=== PATIENT | male | born 1980 | race Caucasian/White ===

== ENCOUNTER 2020-02-20 20:05 | Observation (INO) | payer OTHER ==
[2020-02-20] MEDS ORDERED: RINGERS SOLUTION,LACTATED 1,000 ML IV ONE (20:34)
[2020-02-20] MEDS ORDERED: PROMETHAZINE HCL INJ 25 MG/1 ML VIAL IV ONE (20:34)
--- NOTE | 2020-02-20 20:36 | ER Document Report ---
ED Medical Screen (RME) - General Chief Complaint: Abdominal Pain Stated Complaint: ABDOMINAL PAIN/VOMITING Time Seen by Provider: 02/20/20 20:28 Mode of Arrival: Wheelchair Information source: Patient, Relative Notes: HPI; 39-year-old male brought to the emergency room with his complaining of worsening abdominal pain with nausea and vomiting for the past 2 days. Patient has a history of celiac artery compression syndrome. Most recently admitted at [facility] from February 11 1 February 14 states symptoms started again [place] kevin he has been taking his home oxycodone, Phenergan and Zofran without relief. States the only thing that works for him when his pain gets this bad is IV Dilaudid and IV Phenergan and IV fluids. States unable to tolerate anything p.o. PE: Alert and oriented x3. Lungs: Clear to auscultation without rales, rhonchi, wheezes. Heart: Tachycardic without murmurs, rubs, gallops. Actively vomiting. I have greeted and performed a rapid initial assessment of this patient. A comprehensive ED assessment and evaluation of the patient, analysis of test results and completion of the medical decision making process will be conducted by additional ED providers. I have specifically instructed the patient or family members with the patient to immediately return to any nursing staff should anything change in the patient's condition or with their chief complaint. TRAVEL OUTSIDE OF THE [place] IN LAST 30 DAYS: No - Related Data Allergies/Adverse Reactions: tramadol Allergy (Verified 02/20/20 20:30) Physical Exam - Vital signs Vitals: Temp Pulse Resp BP Pulse Ox 98.1 F 99 18 196/101 H 100 02/20/20 20:26 02/20/20 20:26 02/20/20 20:26 02/20/20 20:26 02/20/20 20:26 Course - Vital Signs Vital signs: Temp Pulse Resp BP Pulse Ox 98.1 F 99 18 196/101 H 100 02/20/20 20:26 02/20/20 20:26 02/20/20 20:26 02/20/20 20:26 02/20/20 20:26
[2020-02-20 21:31] LABS: ABSOLUTE BASOPHILS # (AUTO) 0.1 10^3/uL (0.0-0.2); ABSOLUTE LYMPHOCYTES (AUTO) 1.2 10^3/uL (0.5-4.7); ABSOLUTE MONOCYTES (AUTO) 0.4 10^3/uL (0.1-1.4); ABSOLUTE NEUT (AUTO) 13.4 10^3/uL (1.7-8.2); BASOPHILS % (AUTO) 0.4 % (0-2); EOSINOPHILS % (AUTO) 0.1 % (0-6); HEMATOCRIT 44.5 % (37.9-51.0); LYMPHOCYTES % (AUTO) 7.8 % (13-45); MEAN CORPUSCULAR HEMOGLOBIN 28.4 pg (27.0-33.4); MEAN CORPUSCULAR HGB CONC 33.6 g/dL (32.0-36.0); MEAN CORPUSCULAR VOLUME 85 fl (80-97); MONOCYTES % (AUTO) 2.4 % (3-13); PLATELET COUNT 309 10^3/uL (150-450); RED BLOOD COUNT 5.27 10^6/uL (4.35-5.55); RED CELL DISTRIBUTION WIDTH 13.6 % (11.5-14.0); SEGMENTED NEUTROPHILS % (AUTO) 89.3 % (42-78); TOTAL CELLS COUNTED % (AUTO) 100 %
[2020-02-20 21:48] LABS: ALBUMIN 5.6 g/dL (3.5-5.0); ALKALINE PHOSPHATASE 118 U/L (38-126); ANION GAP 13 (5-19); ASPARTATE AMINO TRANSFERASE 23 U/L (17-59); BILIRUBIN,DIRECT 0.1 mg/dL (0.0-0.4); BILIRUBIN,TOTAL 0.6 mg/dL (0.2-1.3); BLOOD UREA NITROGEN 17 mg/dL (7-20); CALCIUM 10.6 mg/dL (8.4-10.2); CARBON DIOXIDE 30 mmol/L (22-30); CHLORIDE 94 mmol/L (98-107); GLUCOSE 111 mg/dL (75-110); POTASSIUM 4.2 mmol/L (3.6-5.0); TOTAL PROTEIN 8.9 g/dL (6.3-8.2)
[2020-02-20] MEDS ORDERED: METOCLOPRAMIDE HCL INJ/PF 10 MG/2 ML SDV IV ONE (23:08)
[2020-02-21] MEDS ORDERED: ONDANSETRON HCL INJ/PF 4 MG/2 ML SDV IV ONE (05:29)
[2020-02-21] MEDS ORDERED: HYDROMORPHONE HCL INJ/PF 2 MG/ML AMPULE IV ONE ×3 (05:29→11:40)
--- NOTE | 2020-02-21 07:11 | RADIOLOGY REPORT (SQ) ---
EXAM DESCRIPTION: CT ABDOMEN PELVIS WITH IV CONTRAST COMPLETED DATE/TME: 02/21/2020 06:00 CLINICAL HISTORY: 39 years, Male, abdominal pain TECHNIQUE: Contiguous axial CT images of the abdomen and pelvis. Intravenous contrast: Present. Oral contrast: Absent. DLP 1133 mGy-cm. This exam was performed according to our departmental dose-optimization program, which includes automated exposure control, adjustment of the mA and/or kV according to patient size and/or use of iterative reconstruction technique. COMPARISON: None. FINDINGS: Lower chest: Partially imaged. Lung bases: Unremarkable. Cardiac apex: Unremarkable. Solid abdominal viscera: Liver: Fatty liver. Gallbladder: Unremarkable. Pancreas: Unremarkable. Spleen: Unremarkable. Adrenal glands: Unremarkable. Right kidney: No hydronephrosis. Left kidney: No hydronephrosis. Urinary bladder: Incompletely distended with the rodríguez measuring up to 7 mm in thickness Abdominal aorta: Unremarkable. Peritoneal: Free fluid: None. Free air: None. Other: No pathologic sized lymph nodes in the upper abdomen. Bowel: Stomach: Postsurgical changes near the epigastric region Small bowel: Unremarkable. Appendix: Unremarkable. Colon: Unremarkable. Rectum: Unremarkable. Prostate: Unremarkable. Bones: Unremarkable. IMPRESSION: Mild thickening of the urinary bladder, which may be due to under distention or cystitis. Fatty liver.
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
[2020-02-21] MEDS ORDERED: NORMAL SALINE 1000 ML 1,000 ML IV ONE ×2 (08:21→12:00)
[2020-02-21 09:04] LABS: APPEARANCE,URINE CLEAR; BILIRUBIN,URINE NEGATIVE (NEGATIVE); COLOR,URINE YELLOW; GLUCOSE, URINE NEGATIVE (NEGATIVE); KETONES,URINE NEGATIVE (NEGATIVE); LEUKOCYTE ESTERASE,URINE NEGATIVE (NEGATIVE); NITRITE,URINE NEGATIVE (NEGATIVE); PROTEIN,URINE NEGATIVE (NEGATIVE); UROBILINOGEN,URINE NEGATIVE mg/dL (<2.0)
[2020-02-21 09:05] LABS: URINE SPECIFIC GRAVITY > 1.060
[2020-02-21] MEDS ORDERED: PROMETHAZINE HCL INJ 25 MG/1 ML VIAL IV ONE (11:41)
[2020-02-21] MEDS ORDERED: OXYCODONE-ACETAMINOPHEN 5-325 MG TABLET PO PRN ×2 (12:02)
[2020-02-21] MEDS ORDERED: ACETAMINOPHEN 325 MG TABLET PO PRN (12:02)
[2020-02-21] MEDS ORDERED: ALBUTEROL SULFATE 0.083% NEB 2.5 MG/3 ML AMPUL NEB PRN (12:02)
[2020-02-21] MEDS ORDERED: ONDANSETRON HCL INJ/PF 4 MG/2 ML SDV IV PRN (12:07)
[2020-02-21] MEDS ORDERED: MAG HYDROX/AL HYDROX/SIMETH SUSP 30 ML UDCUP PO PRN (12:07)
[2020-02-21] MEDS ORDERED: PROMETHAZINE HCL INJ 25 MG/1 ML VIAL IV PRN (12:07)
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
[2020-02-21] MEDS: RINGERS SOLUTION,LACTATED 1,000 ML IV PRN (15:05)
[2020-02-21 15:29] LABS: CREATINE KINASE 36 U/L (55-170)
[2020-02-21 15:31] LABS: C-REACTIVE PROTEIN < 5.0 mg/L (<10.0)
[2020-02-21] MEDS: OXYCODONE-ACETAMINOPHEN 5-325 MG TABLET PO PRN ×2 (16:43→21:44)
[2020-02-21] MEDS: HYDROMORPHONE HCL INJ/PF 2 MG/ML AMPULE IV PRN ×2 (18:22→23:29)
[2020-02-21] MEDS: FAMOTIDINE INJ/PF 20 MG/2 ML SDV IV SCH (21:44)
[2020-02-21] MEDS ORDERED: TRAZODONE HCL 50 MG TABLET PO SCH (22:00)
[2020-02-21] MEDS ORDERED: NORTRIPTYLINE HCL 25 MG CAPSULE PO ONE (22:45)
[2020-02-22] MEDS ORDERED: NORTRIPTYLINE HCL 25 MG CAPSULE ONE (01:03)
[2020-02-22] MEDS: RINGERS SOLUTION,LACTATED 1,000 ML IV PRN ×2 (01:14→14:36)
[2020-02-22] MEDS ORDERED: NORTRIPTYLINE HCL 25 MG CAPSULE PO ONE (01:45)
[2020-02-22] MEDS: HYDROMORPHONE HCL INJ/PF 2 MG/ML AMPULE IV PRN (07:35)
[2020-02-22 07:59] LABS: ANION GAP 5 (5-19); BLOOD UREA NITROGEN 12 mg/dL (7-20); CARBON DIOXIDE 29 mmol/L (22-30); CHLORIDE 105 mmol/L (98-107); GLUCOSE 92 mg/dL (75-110); POTASSIUM 4.1 mmol/L (3.6-5.0)
[2020-02-22 08:06] LABS: HEMATOCRIT 32.7 % (37.9-51.0); MEAN CORPUSCULAR HEMOGLOBIN 28.1 pg (27.0-33.4); MEAN CORPUSCULAR HGB CONC 33.8 g/dL (32.0-36.0); MEAN CORPUSCULAR VOLUME 83 fl (80-97); PLATELET COUNT 116 10^3/uL (150-450); RED BLOOD COUNT 3.94 10^6/uL (4.35-5.55); RED CELL DISTRIBUTION WIDTH 13.2 % (11.5-14.0); WHITE BLOOD COUNT 4.7 10^3/uL (4.0-10.5)
[2020-02-22 08:19] LABS: HEMOGLOBIN 11.1 g/dL (13.5-17.0)
[2020-02-22] MEDS ORDERED: HYDROMORPHONE HCL INJ/PF 2 MG/ML AMPULE IV PRN ×2 (09:12→11:07)
[2020-02-22] MEDS ORDERED: ESCITALOPRAM OXALATE 10 MG TABLET PO SCH (10:00)
[2020-02-22] MEDS ORDERED: TELMISARTAN 80 MG PO SCH (10:00)
[2020-02-22] MEDS ORDERED: ENOXAPARIN SODIUM INJ 40 MG/0.4 ML DISP.SYRIN SUBCUT SCH (10:00)
[2020-02-22] MEDS ORDERED: DRONABINOL 5 MG PO SCH (10:00)
[2020-02-22] MEDS: OXYCODONE-ACETAMINOPHEN 5-325 MG TABLET PO PRN ×2 (10:51→17:19)
[2020-02-22] MEDS: FAMOTIDINE INJ/PF 20 MG/2 ML SDV IV SCH (10:52)
[2020-02-22] MEDS ORDERED: LOSARTAN POTASSIUM 50 MG TABLET PO SCH (11:00)
[2020-02-22] MEDS: DRONABINOL 2.5 MG CAPSULE PO SCH ×2 (14:34→17:19)
[2020-02-22 17:28] VITALS: BP 196/101
--- NOTE | 2020-02-22 21:09 | PDOC DISCHARGE SUMMARY ---
Impression - Admit/DC Date/PCP Admission Date/Primary Care Provider: 02/21/20 12:36 Discharge Date: 02/22/20 - Discharge Diagnosis (1) Intractable abdominal pain Is this a current diagnosis for this admission?: Yes (2) Celiac artery compression syndrome Is this a current diagnosis for this admission?: Yes (3) Depression Is this a current diagnosis for this admission?: Yes (4) Dehydration Is this a current diagnosis for this admission?: Yes - Additional Information Resuscitation Status: Full Code Discharge Diet: As Tolerated, Regular Discharge Activity: Activity As Tolerated Referrals: ADALBERTO MACIAS MD [NO LOCAL MD] - 02/23/20 10:44 am (02/23/20 1044 called and left a message and providers office will call pt with follow up ) Home Medications: Escitalopram Oxalate [Lexapro 10 mg Tablet] 10 mg PO QHS 02/21/20 Nortriptyline HCl [Pamelor 25 mg Capsule] 25 mg PO QHS 02/21/20 Nortriptyline HCl [Pamelor] 100 mg PO QHS 02/21/20 Oxycodone HCl [Oxy-Ir 5 mg Tablet] 5 mg PO Q6HP PRN MDD LAST FILLED 02/14 FOR 2 DAYS 02/21/20 Pantoprazole Sodium [Protonix [address] Tablet] 40 mg PO QAM 02/21/20 Telmisartan 80 mg PO DAILY 02/21/20 Trazodone HCl [Desyrel 50 mg Tablet] 100 mg PO QHS 02/21/20 Acetaminophen [Tylenol 325 mg Tablet] 650 mg PO Q4HP PRN tablet 02/22/20 History of Present Illiness History of Present Illness: EUNICE PATINO is a 39 year old male with a past medical history significant for depression and celiac artery compression syndrome (recently admitted to [facility]) s/p celiac artery bypass who presented to the emergency department today with a complaint of intractable nausea and vomiting primarily related to abdominal pain has gradually worsened over the last few days but significantly increased worsened in the last 48 hours to the extent that he has not been able to tolerate p.o. fluids. He was recently admitted to [facility] for similar symptoms. Patient reports that he was treated with IV fluids and analgesics until his symptoms resolved; was able to discharge within 48 hours. He states that he recently established with [facility]; with hopeful that they would be able to provide chronic pain management services, however, feels that he would be better served by a pain management group. He was previously seen by pain management at [facility] prior to his medical discharge. Otherwise, he denies all symptoms; no fever, chest pain, palpitations, dyspnea, diarrhea or constipation. No sick contacts or exposures. Evaluation in the emergency department revealed initial hypertension which is resolved with appropriate pain control. He was found to have leukocytosis with WBCs 15, fairly unremarkable chemistry, urinalysis significant only for specific gravity of 1.060 and pH of 6.[address] of the abdomen and pelvis with contrast demonstrated mild thickening of the urinary bladder; urinalysis was negative for UTI. He has been provided IV fluids, antiemetics and analgesics. His nausea and vomiting have improved however, he does continue to have severe and near constant abdominal discomfort. Therefore, is referred to the hospital service for further evaluation management of the above-stated complaints findings. Hospital Course Hospital Course: The patient was admitted to the medical floor and provided generous IV fluids. He was placed on a clear liquid diet and supported with antiemetics and analgesics. His symptoms rapidly improved over 24 hours. And so his diet was advanced. He continued to tolerate regular diet without worsened abdominal discomfort nausea, or vomiting. Therefore his hospital benefit had been maximized and he was prepared for discharge to home. At time of discharge, the pain management provider had not yet had the opportunity to meet with the patient. Shortly after the patient left the building, I did receive a phone call from Ms. Veronica NP. I discussed the patient's case with Ms. Burleson and provided her his contact information. She stated that she would be calling him directly to arrange for close follow-up appointment. Of note, the patient shows a BP of 196/101 at time of discahrge. Per nursing, this is a meditech error and reflecting his initial BP while still in the ED. His actual blood pressure at time of discharge was 122/71 (see RN note). Physical Exam Vital Signs: Temp Pulse Resp BP Pulse Ox 97.7 F 81 18 196/101 H 99 02/22/20 17:27 02/22/20 17:27 02/22/20 17:27 02/22/20 17:27 02/22/20 17:27 Intake & Output 02/21/20 02/22/2020 06:59 06:59 06:59 Intake Total 1000 3000 1480 Balance 1000 3000 1480 Weight 86.183 kg 98.1 kg General appearance: PRESENT: no acute distress, cooperative, well-developed, well-nourished - Overweight Head exam: PRESENT: atraumatic, normocephalic Eye exam: PRESENT: conjunctiva pink, EOMI, PERRLA. ABSENT: scleral icterus Ear exam: PRESENT: normal external ear exam Mouth exam: PRESENT: moist, tongue midline Respiratory exam: PRESENT: clear to auscultation elayne. ABSENT: rales, rhonchi, wheezes Cardiovascular exam: PRESENT: RRR. ABSENT: diastolic murmur, rubs, systolic murmur Pulses: PRESENT: normal dorsalis pedis pul Vascular exam: PRESENT: normal capillary refill GI/Abdominal exam: PRESENT: normal bowel sounds, soft. ABSENT: distended, guarding, mass, organolmegaly, rebound, tenderness Rectal exam: PRESENT: deferred Extremities exam: PRESENT: full ROM. ABSENT: calf tenderness, clubbing, pedal edema Musculoskeletal exam: PRESENT: ambulatory Neurological exam: PRESENT: alert, awake, oriented to person, oriented to place, oriented to time, oriented to situation, CN II-XII grossly intact. ABSENT: motor sensory deficit Psychiatric exam: PRESENT: appropriate affect, normal mood. ABSENT: homicidal ideation, suicidal ideation Skin exam: PRESENT: dry, intact, warm. ABSENT: cyanosis, rash Results Laboratory Results: WBC 4.7 10^3/uL (4.0-10.5) 02/22/20 06:19 RBC 3.94 10^6/uL (4.35-5.55) L 02/22/20 06:19 Hgb 11.1 g/dL (13.5-17.0) L D 02/22/20 06:19 Hct 32.7 % (37.9-51.0) L 02/22/20 06:19 MCV 83 fl (80-97) 02/22/20 06:19 MCH 28.1 pg (27.0-33.4) 02/22/20 06:19 MCHC 33.8 g/dL (32.0-36.0) 02/22/20 06:19 RDW 13.2 % (11.5-14.0) 02/22/20 06:19 Plt Count 116 10^3/uL (150-450) L 02/22/20 06:19 Lymph % (Auto) 7.8 % (13-45) L 02/20/20 20:57 [place] % (Auto) 2.4 % (3-13) L 02/20/20 20:57 Eos % (Auto) 0.1 % (0-6) 02/20/20 20:57 Baso % (Auto) 0.4 % (0-2) 02/20/20 20:57 Absolute Neuts (auto) 13.4 10^3/uL (1.7-8.2) H 02/20/20 20:57 Absolute Lymphs (auto) 1.2 10^3/uL (0.5-4.7) 02/20/20 20:57 Absolute Monos (auto) 0.4 10^3/uL (0.1-1.4) 02/20/20 20:57 Absolute Eos (auto) 0.0 10^3/uL (0.0-0.6) 02/20/20 20:57 Absolute Basos (auto) 0.1 10^3/uL (0.0-0.2) 02/20/20 20:57 Seg Neutrophils % 89.3 % (42-78) H 02/20/20 20:57 ESR 7 mm/hr (0-15) 02/21/20 14:58 Sodium 138.9 mmol/L (137-145) 02/22/20 06:19 Potassium 4.1 mmol/L (3.6-5.0) 02/22/20 06:19 Chloride 105 mmol/L (98-107) 02/22/20 06:19 Carbon Dioxide 29 mmol/L (22-30) 02/22/20 06:19 Anion Gap 5 (5-19) 02/22/20 06:19 BUN 12 mg/dL (7-20) 02/22/20 06:19 Creatinine 1.00 mg/dL (0.52-1.25) 02/22/20 06:19 Est GFR ( Amer) > 60 (>60) 02/22/20 06:19 Est GFR (MDRD) Non-Af > 60 (>60) 02/22/20 06:19 Glucose 92 mg/dL (75-110) 02/22/20 06:19 Calcium 9.0 mg/dL (8.4-10.2) 02/22/20 06:19 Total Bilirubin 0.6 mg/dL (0.2-1.3) 02/20/20 20:57 Direct Bilirubin 0.1 mg/dL (0.0-0.4) 02/20/20 20:57 Neonat Total Bilirubin Not Reportable 02/20/20 20:57 Neonat Direct Bilirubin Not Reportable 02/20/20 20:57 Neonat Indirect Bili Not Reportable 02/20/20 20:57 AST 23 U/L (17-59) 02/20/20 20:57 ALT 19 U/L (<50) 02/20/20 20:57 Alkaline Phosphatase 118 U/L (38-126) 02/20/20 20:57 Creatine Kinase 36 U/L (55-170) L 02/21/20 14:58 C-Reactive Protein < 5.0 mg/L (<10.0) 02/21/20 14:58 Total Protein 8.9 g/dL (6.3-8.2) H 02/20/20 20:57 Albumin 5.6 g/dL (3.5-5.0) H 02/20/20 20:57 Lipase 61.0 U/L (23-300) 02/20/20 20:57 Urine Color YELLOW 02/21/20 08:24 Urine Appearance CLEAR 02/21/20 08:24 Urine pH 6.0 (5.0-9.0) 02/21/20 08:24 Ur Specific Kimberly > 1.060 02/21/20 08:24 Urine Protein NEGATIVE mg/dL (NEGATIVE) 02/21/20 08:24 Urine Glucose (UA) NEGATIVE mg/dL (NEGATIVE) 02/21/20 08:24 Urine Ketones NEGATIVE mg/dL (NEGATIVE) 02/21/20 08:24 Urine Blood NEGATIVE (NEGATIVE) 02/21/20 08:24 Urine Nitrite NEGATIVE (NEGATIVE) 02/21/20 08:24 Urine Bilirubin NEGATIVE (NEGATIVE) 02/21/20 08:24 Urine Urobilinogen NEGATIVE mg/dL (<2.0) 02/21/20 08:24 Ur Leukocyte Esterase NEGATIVE (NEGATIVE) 12/29/20 08:24 Urine WBC (Auto) 0 /HPF 02/21/20 08:24 Urine RBC (Auto) 1 /HPF 02/21/20 08:24 Urine Mucus (Auto) RARE /LPF 02/21/20 08:24 Urine Ascorbic Acid 20 (NEGATIVE) H 02/21/20 08:24 Impressions: Abdomen/Pelvis CT 02/21/20 05:33 IMPRESSION: Mild thickening of the urinary bladder, which may be due to under distention or cystitis. Fatty liver. Plan Plan of Treatment: Patient is discharged home in stable condition. He is advised follow-up with his primary care provider within 1 week. He will be contacted by [facility] to schedule a new patient appointment. He is instructed to take his medications as prescribed. He is advised to return to the emergency department, as needed, for concerning symptoms. Time Spent: Greater than 30 Minutes Stroke Is this a Stroke Patient?: No Acute Heart Failure Is this a Heart Failure Patient?: No
[2020-02-22] MEDS ORDERED: NORTRIPTYLINE HCL 50 MG PO SCH (22:00)
[2020-02-22] MEDS ORDERED: NORTRIPTYLINE HCL 25 MG CAPSULE PO SCH ×4 (22:00)
[2020-02-23] MEDS ORDERED: PANTOPRAZOLE SODIUM 40 MG TABLET.DR PO SCH (08:00)
== END 2020-02-22 17:38 | disposition home or self-care (01) ==
LOC: ER 20:05 → EH 02-21 12:36 → 4S 02-21 21:20
PROVIDERS: ADMIT Internal Medicine; ATTEND Registered Nurse
DX: R10.9 Unspecified abdominal pain (principal); I77.4 Celiac artery compression syndrome; F32.9 Major depressive disorder, single episode, unspecified; E86.0 Dehydration; R11.2 Nausea with vomiting, unspecified; Z88.8 Allergy status to other drugs, medicaments and biological substances; Z79.899 Other long term (current) drug therapy; Z87.891 Personal history of nicotine dependence
CPT/HCPCS: 96376; 99285; 96361; 96374; 96375; 36415 ×3; 82550; 83690; 85025; 85027; 85652; 86140; 80048; 80053; 81001; 74177; G0378 ×3; J3490 ×2; A9270; J2765; J1170 ×2; J2550; J2405; J7030; J7120 ×3; S0028 ×2